=== PATIENT | female | born 1965 | race Caucasian/White ===

== ENCOUNTER → 2016-07-26 | Outpatient (CLI) | payer MEDICARE, MEDICAID ==
[~2016-07-26] MED LIST: ALPR1TAB2 PO; ASPI-482 PO; ATOR10TA60 PO; BUSP5TAB PO; CRESTOR10 MG PO; GABA-586 PO; HYDR-2672 PO; IOHEXOL 180 MG/ML 10 ML VIAL. ONE; LAMO200T25 PO; LEVO25TA4 PO; MELO-150 PO; TIZA4TAB8 PO; methylPREDNISolone ACETATE 40 MG/ML VIAL. ONE; methylPREDNISolone ACETATE 80 MG/ML VIAL. ONE
--- NOTE | 2016-07-27 11:45 | PAIN ---
DATE OF SERVICE: 07/26/2016 PROGRESS NOTE FOR PAIN CLINIC DIAGNOSES: Lumbar radiculopathy with low back pain. HISTORY OF PRESENT ILLNESS: The patient is a 50-year-old female who returns for followup status post lumbar epidural steroid injection x 2, last seen 05/13/2016. The patient did well. She also managed with hydrocodone 10 mg, which she does well with this as well, also with no side effects with about 75% improvement with medication alone. The patient reports she has had an increased pain in the low back, right lower extremity, and in the groin bilaterally, rates as 10 on a scale of 10, worse over the past week or so. The patient has had some stressful issues at home as well and has had an increased pain from that. The patient reports that otherwise the pain is radiating in her low back and in her right lower extremity, mostly in the anterior aspect on the right side of the thigh and into the lower leg below the knee on the right side medially. The patient reports no new motor or sensory deficits, no new bowel or bladder incontinence or other complaints, but still significant pain and also noted some pain in the base of the neck and right shoulder. PHYSICAL EXAMINATION: VITAL SIGNS: Today, the patient's blood pressure is 147/84, pulse 70, respirations 18, temperature 97.9 degrees Fahrenheit. Height is 5 feet 7 inches, weighs 230 pounds. GENERAL: The patient is awake, alert, oriented, appropriate, very pleasant demeanor. HEENT: Head shows normocephalic, atraumatic. Extraocular movements are intact and symmetrical. Oral cavity shows mucous membranes moist and pink. NECK: Shows anterior throat supple without palpable lymphadenopathy noted. Swallow reflex is symmetrical. CHEST: Shows normal on inspection. Breath sounds are clear to auscultation bilaterally. HEART: Shows S1 and S2 clear. ABDOMEN: Obese, soft, nontender, and nondistended. No palpable organomegaly is noted. BACK: The patient's back shows spine grossly in the midline. Lumbar paraspinous muscle shows some moderate tenderness with palpation, but symmetrical on inspection. No trigger points or radiation of pain, but tender throughout the upper, middle and lower distribution of paraspinous muscles without asymmetry, no tenderness over the sacrum or sacroiliac regions. The patient shows good rotational motion of the lumbar spine, both laterally as well as extension and flexion without significant difficulty or pain reported. EXTREMITIES: The patient's lower extremities showed deep tendon reflexes 2+ in the patellar and 1+ tendocalcaneus tendons. Motor exam is strong with 5/5 dorsiflexion, extension, quadriceps and hamstring flexion equal. Peripheral pulses are 2+ in the posterior tibial and dorsalis pedis pulses. No peripheral edema is noted. Options were discussed with the patient. The patient's old chart was reviewed as her current medication regimen updated. Current review of systems updated today as well. We will proceed with the third lumbar epidural steroid injection in the series with fluoroscopic guidance. Risks were again discussed including, but not limited to bleeding, infection, possibility of epidural hematoma, subsequent neurologic compromise, dural puncture, headaches, spinal cord and/or nerve damage, side effects of steroid medication and poor results regarding pain control. The patient understands and wishes to proceed. The patient will return to the clinic in approximately 4 weeks for followup and was counseled on activity levels and side effects to be aware of. The patient was given refill medication for hydrocodone as well as tizanidine and gabapentin with instructions, side effects to be aware of discussed these medications. DIAGNOSIS: Lumbar radiculopathy with low back pain. PROCEDURE: Lumbar epidural steroid injection, translaminar approach at the L4-L5 level using the C-arm fluoroscopic guidance under sterile prep and drape using local anesthetic. MEDICATIONS INJECTED: 120 mg of Depo-Medrol plus 10 mL of preservative-free normal saline and 2 mL of Isovue for contrast. CONDITION AT DISCHARGE: Stable. The patient tolerated procedure well, had no complications. KEELEY BLANK MD DR: JOSR/bon JOB#: [id number] / [id number]
== END | disposition home or self-care (01) ==
LOC: PNCL 12:44
PROVIDERS: ATTEND Anesthesiology
DX: M54.16 Radiculopathy, lumbar region (principal)
CPT/HCPCS: 62323; J1030; J1040

== ENCOUNTER → 2016-09-23 | Outpatient (CLI) | payer MEDICARE, MEDICAID ==
--- NOTE | 2016-09-23 18:44 | PAIN ---
DATE OF SERVICE: 09/23/2016 PROGRESS NOTE FOR PAIN CLINIC DIAGNOSES: Lumbar radiculopathy with low back pain. HISTORY OF PRESENT ILLNESS: The patient is a 51-year-old female, who returns for followup status post lumbar epidural steroid injections and medication management. The patient reports that she doing very well with ____ the pain returning over in the low back and the bilateral hips. The patient reports right is worse than the left. This is stabbing pain, aching and dull some tight sharp pain as well as aching and unbearable at times, but does on and off. She rates it as 7 on a scale of 10, essentially with all activities. It is awaken her from sleep occasionally, but does much better after the injections. The patient reports she sleeps 6-7 hours at night after the injections, but recently has been waking up about 2-3 hours, because of pain, having to reposition. The patient reports no new motor or sensory deficits, no new bowel or bladder incontinence or other complaints. PHYSICAL EXAMINATION: VITAL SIGNS: The patient's blood pressure 133/86, pulse 71, respirations 20, temperature 97.8 degrees Fahrenheit, height is 5 feet 7 inches, weight is 232 pounds. GENERAL: The patient is awake, alert, oriented, appropriate, very pleasant demeanor. HEENT: Head is normocephalic, atraumatic. Extraocular movements are intact and symmetrical. Oral cavity: Mucous membranes moist and pink. Dentition is intact. NECK: Shows anterior throat supple without palpable lymphadenopathy noted. Swallow reflex is symmetrical. CHEST: Shows normal on inspection. Breath sounds are clear to auscultation bilaterally. HEART: Shows S1 and S2 clear. ABDOMEN: Soft, nontender, nondistended. No palpable organomegaly is noted. No rebound or guarding demonstrated. BACK: Shows spine grossly midline. Lumbar paraspinous muscle shows some moderate tenderness to palpation bilaterally, but only diffusely and full rotational motion both laterally as well as extension and flexion. LOWER EXTREMITIES: Show deep tendon reflexes 2+ in the patellar, 1+ tendo-calcaneus tendons are equal. Motor exam is 5/5 with dorsiflexion and extension bilaterally. Options were discussed with the patient and the patient's old chart was reviewed as her current medication regimen and updated. Current review of systems updated today as well. We will proceed with a lumbar epidural steroid injection today with fluoroscopic guidance. Risks were again discussed including, but not limited to bleeding, infection, possibility of epidural hematoma, subsequent neurologic compromise, dural puncture, headaches, spinal cord and/or nerve damage, side effects of steroid medication and poor results regarding pain control. The patient understands and wishes to proceed. The patient will return to clinic in approximately 2 weeks for followup, was counseled on return appointment, activity level and side effects to be aware of. DIAGNOSES: Lumbar radiculopathy with low back pain. PROCEDURE: Lumbar epidural steroid injection in translaminar approach at L4-L5 level using C-arm fluoroscopic guidance under sterile prep and drape using local anesthetic. MEDICATION INJECTED: Depo-Medrol 120 mg plus 10 mL of preservative-free normal saline and 2 mL of Isovue for contrast. CONDITION AT DISCHARGE: Stable. The patient tolerated procedure well, had no complications. KEELEY BLANK MD DR: JOSR/bon JOB#: [id number] / [id number]
== END | disposition home or self-care (01) ==
LOC: PNCL 14:30
PROVIDERS: ATTEND Anesthesiology
DX: M54.16 Radiculopathy, lumbar region (principal)
CPT/HCPCS: 62323; J1030; J1040

== ENCOUNTER → 2016-11-15 | Outpatient (CLI) | payer MEDICARE, MEDICAID ==
[~2016-11-15] MED LIST changes: -HYDR-2672 PO; +HYDR-2766 PO; -MELO-150 PO; +MELO15TA23 PO
--- NOTE | 2016-11-16 05:20 | PN ---
DATE: 11/15/2016 PROGRESS NOTE FOR PAIN CLINIC DIAGNOSES: Lumbar radiculopathy with low back pain. HISTORY OF PRESENT ILLNESS: The patient is a 51-year-old female who returns for followup status post lumbar epidural steroid injections and medication management with hydrocodone. The patient reports she is doing very well each of these with good decrease in pain with the medication by about 50% and was about 60% better after the last lumbar injection, which is 09/23/2016. The patient reports no new motor or sensory deficits, no new bowel or bladder incontinence, still significant pain in low back, described as tingling, cramping, stabbing, shooting, sharp, aching, severe unbearable at times and becoming more constant. The patient reports cramping in her legs. Pain across the low back, mostly in the right hip and lower extremity also some upper mid back pain as well. She has been doing some moving lately between new residence, but is reports she is most ____ to in the supervising and unpacking, but still with increased activity, this has caused her pain to be accelerated as well. The patient reports no new motor or sensory deficits, no new bowel or bladder incontinence. The patient reports it awakens her from sleep at night, but she sleeps about 5 hours at a time that she must ____ or reposition and change the positions to get out of bed or take pain medications to get back to sleep. PHYSICAL EXAMINATION: VITAL SIGNS: The patient's blood pressure 122/79, pulse 78, respirations 20, temperature 97.7 degrees Fahrenheit, weight is 223 pounds. GENERAL: The patient is awake, alert, oriented, appropriate, very pleasant demeanor. HEENT: Head shows normocephalic, atraumatic. Extraocular movements are intact, symmetrical. Oral cavity, mucous membranes are moist and pink. Dentition is intact. NECK: Shows anterior throat supple without palpable lymphadenopathy noted. Swallow reflex is symmetrical. CHEST: Shows normal on inspection. Breath sounds clear to auscultation bilaterally. HEART: Shows S1 and S2 clear. ABDOMEN: Obese, soft, nontender, nondistended. BACK: Shows spine grossly midline. Lumbar paraspinous muscle shows symmetrical on inspection. Palpation shows some moderate tenderness bilaterally, but only diffusely without radiation. No tenderness over the sacrum or sacroiliac regions. The patient does show good rotational motion of the lumbar spine, both laterally as well as extension and flexion without difficulty. EXTREMITIES: Lower extremities show deep tendon reflexes 2+ in the patellar, 1+ tendo calcaneus tendons. Motor exam is strong with 5/5 dorsiflexion, extension and equal. Options were discussed with the patient and the patient's old chart was reviewed as her current medication regimen updated. Current review of systems updated today as well. We will proceed with a second in the series of lumbar epidural steroid injection with fluoroscopic guidance. Risks were again discussed including, but not limited to bleeding, infection, possibility of epidural hematoma and subsequent neurologic compromise, dural puncture, headaches, spinal cord and/or nerve damage, side effects of steroid medication and poor results regarding pain control. The patient understands and wishes to proceed. The patient will return to clinic in approximately 2 weeks for followup, was counseled on return appointment, activity level and side effects to be aware of. DIAGNOSIS: Lumbar radiculopathy with low back pain. PROCEDURE: Lumbar epidural steroid injection in translaminar approach at the L4-L5 level using C-arm fluoroscopic guidance under sterile prep and drape using local anesthetic. MEDICATIONS INJECTED: Depo-Medrol 120 mg plus 10 mL preservative-free normal saline and 2 mL of Isovue contrast. CONDITION AT DISCHARGE: Stable. The patient tolerated the procedure well, had no complications. KEELEY BLANK MD DR: JOSR/bon JOB#: [id number] / [id number]
== END | disposition home or self-care (01) ==
LOC: PNCL 14:30
PROVIDERS: ATTEND Anesthesiology
DX: M54.16 Radiculopathy, lumbar region (principal); Z88.1 Allergy status to other antibiotic agents; Z88.8 Allergy status to other drugs, medicaments and biological substances
CPT/HCPCS: 62323; J1030; J1040

== ENCOUNTER → 2017-01-14 | Outpatient (CLI) | payer MEDICARE, MEDICAID ==
[~2017-01-14] MED LIST changes: -methylPREDNISolone ACETATE 40 MG/ML VIAL. ONE
--- NOTE | 2017-01-14 19:36 | PAIN ---
DATE OF SERVICE: 01/14/2017 DIAGNOSIS: Lumbar radiculopathy with lumbar low back pain. HISTORY OF PRESENT ILLNESS: The patient is a 51-year-old female who returns for followup status post lumbar epidural steroid injection x 2, last on 11/15/2016. The patient also is managed with hydrocodone and she has been doing this with good success for the past few months. She has been doing quite well; however, approximately 1 week ago, she fell on some stairs as she was climbing them at her apartment complex and increased pain in her back significantly. The patient reports that the pain has become much worse in the low back radiating to bilateral lower extremities, somewhat worse on the right than the left and to the lateral anterior thigh and anterior medial lower leg as well as across the low back. Also, some pain in the right shoulder after her fall as well. The patient reports the pain is 10 on a scale of 10 at all times, ____ average. It is aching, sharp, tight, shooting, stabbing, burning, tingling, constant, becoming more severe and unbearable. The patient reports no new motor or sensory deficits, no new bowel or bladder incontinence. It has been waking her from sleep over the past week sporadically, but not every night. The patient reports it is much worse with standing, walking, changing positions, bending, stooping forward. PHYSICAL EXAMINATION: VITAL SIGNS: The patient's blood pressure is 134/103, pulse 81, respirations are 16, temperature 97.7 degrees Fahrenheit, height is 5 feet 7 inches, weight is 222 pounds. GENERAL: The patient is awake, alert, oriented, appropriate, is a very pleasant demeanor. HEENT: Head shows normocephalic, atraumatic. Extraocular movements are intact, symmetrical. Oral cavity, mucous membranes are moist and pink. NECK: Shows anterior throat supple. CHEST: Shows breath sounds clear to auscultation bilaterally. HEART: Shows S1 and S2 clear. ABDOMEN: Obese, soft, nontender, nondistended. BACK: Shows spine grossly in the midline, slight exaggeration of thoracic kyphosis and mild flattening of lumbar lordotic curvature. Lumbar paraspinous musculature shows some moderate tenderness with palpation, but is symmetrical on inspection. No radiation of pain. No trigger points or asymmetry. The patient's lower extremities show deep tendon reflexes at 2+ in the patellar and 1+ tendo calcaneus tendons, equal. Motor exam is strong with 5/5 dorsiflexion, extension, quadriceps and hamstring flexion. Options were discussed with the patient and the patient's old chart was reviewed as her current medication regimen updated. Current review of systems updated today as well. We will proceed with the third in a series of lumbar epidural steroid injection today with fluoroscopic guidance. Risks were again discussed including, but not limited to bleeding, infection, possibility of epidural hematoma and subsequent neurologic compromise, dural puncture, headaches, spinal cord and/or nerve damage, side effects of steroid medication and poor results regarding pain control. The patient understands and wishes to proceed. The patient will return to clinic in approximately 2 weeks for followup. Counseled as to return appointment, activity level and side effects to be aware of. The patient also given refill prescription for hydrocodone with instructions, side effects to be aware of discussed as well. Also discussed the patient's blood pressure is elevated today and she is planning to follow up with her primary physician regarding this as well. The patient will increase her activity as tolerated, encouraged to maintain stretching and strengthening exercises as well. DIAGNOSIS: Lumbar radiculopathy with low back pain. PROCEDURE: Lumbar epidural steroid injection in translaminar approach at the L4-L5 level using C-arm fluoroscopic guidance under sterile prep and drape using local anesthetic. MEDICATIONS INJECTED: A total of 120 mg of Depo-Medrol plus 10 mL of preservative-free normal saline and 2 mL of Isovue for contrast. CONDITION AT DISCHARGE: Stable. The patient tolerated procedure well, had no complications. KEELEY BLANK MD DR: JOSR/bon JOB#: [id number] / [id number]
== END | disposition home or self-care (01) ==
LOC: PNCL 09:15
PROVIDERS: ATTEND Anesthesiology
DX: M54.16 Radiculopathy, lumbar region (principal); Z88.3 Allergy status to other anti-infective agents; Z88.8 Allergy status to other drugs, medicaments and biological substances
CPT/HCPCS: 62323; J1040

== ENCOUNTER → 2017-03-14 | Outpatient (CLI) | payer MEDICARE, MEDICAID ==
[~2017-03-14] MED LIST changes: -IOHEXOL 180 MG/ML 10 ML VIAL. ONE; -methylPREDNISolone ACETATE 80 MG/ML VIAL. ONE
--- NOTE | 2017-03-14 13:22 | PAIN ---
DATE OF SERVICE: 03/14/2017 DIAGNOSES: Lumbar radiculopathy with low back pain. HISTORY OF PRESENT ILLNESS: The patient is a 51-year-old female who returns for followup status post lumbar epidural steroid injections x 3, most recently on 01/14/2017. The patient did very well with this with about a 75% improvement initially, now is about 50% improved. The pain is returning in the low back and right lower extremity. The patient reports still some pain in this region, rates as 8 on a scale of 10 at its worst and least an average. The patient reports aching, sharp, dull, tight, shooting, stabbing, cramping, tingling, is becoming more constant and severe. The patient reports it is better with lying down. She sleeps about 5 hours a night. Sometimes, the pain will wake her up. She has needs to reposition, get out of bed or take pain medication. The patient has been taking hydrocodone up to 4 tablets a day with good response and no specific serious side effects. She has been on very stable regimen for some time now. The patient reports no new motor or sensory deficits, no new bowel or bladder incontinence or other complaints. PHYSICAL EXAMINATION: VITAL SIGNS: The patient's blood pressure 138/92, pulse 93, respirations 18, temperature is 97.8 degrees Fahrenheit, height is 5 feet 7 inches, weight is 219 pounds. GENERAL: The patient is awake, alert, oriented, appropriate, very pleasant demeanor. HEENT: Shows normocephalic, atraumatic. Extraocular movements are intact, symmetrical. Oral cavity, mucous membranes are moist and pink. Dentition is intact. NECK: Shows anterior throat supple without palpable lymphadenopathy noted. Swallow reflex is symmetrical. CHEST: Shows normal on inspection. Breath sounds clear to auscultation bilaterally. HEART: Shows S1 and S2 clear. ABDOMEN: Soft, nontender, nondistended. No palpable organomegaly. There is no rebound or guarding demonstrated. BACK: Shows spine grossly midline. Slight exaggeration of thoracic kyphosis and normal appearing lumbar lordotic curvature. Lumbar paraspinous musculature shows some symmetrical, on inspection shows tenderness with inferior aspect of the paraspinous musculature with palpation, but without radiation. The patient shows full rotational motion of lumbar spine, both laterally as well as extension and flexion without difficulty. The patient's lower extremities show deep tendon reflexes 2+ in the patellar, 1+ tendo calcaneus tendons are equal. Motor exam is strong with dorsiflexion and extension rated at 5/5 as is quadriceps and hamstring flexion bilaterally. Options were discussed with the patient and the patient's old chart was reviewed as her current medication regimen and updated. Current review of systems updated today as well. We will hold on further injections as she is doing better, but also has not quite been 6 months since the first injection. She would like to wait until next month. We will refill the patient's medication hydrocodone with instructions, side effects to be aware of discussed. The patient also will have new updated narcotic contract signed today. The patient was given a copy of this as well. Also, we will have urinalysis today as routine screening. The patient will return to clinic in approximately 2-3 weeks for a lumbar epidural steroid injection or sooner if necessary. KEELEY BLANK MD DR: JOSR/bon JOB#: [id number] / [id number]
== END | disposition home or self-care (01) ==
LOC: PNCL 09:52
PROVIDERS: ATTEND Anesthesiology
DX: M54.16 Radiculopathy, lumbar region (principal)
CPT/HCPCS: G0463